=== PATIENT | male | born 1950 | race Caucasian/White ===

== ENCOUNTER 2019-02-08 10:24 | Emergency (ER) | payer OTHER ==
[~2019-02-08] VITALS: Ht 177.8 cm; Wt 94.0 kg
[~2019-02-08 10:24] MED LIST: ALPR0.254 PO; CARB15DR74 OP; CITA20TA6 PO; MELO15TA24 PO; TRAM50TA2 PO; VARD20TA2 PO
--- NOTE | 2019-02-08 10:32 | NUR ---
BIB EMS FROM HOME. C/O SUDDEN ONSET RIGHT SIDE FLANK PAIN, DISURIA AND DECREASED UOP. NO HX OF KIDNEY STONES. PT INTO GOWN, BP AND PULSE OX MONITORING PLACED. CALL LIGHT W/I REACH. FAMILY AT BEDSIDE. AWAITING PROVIDER
[2019-02-08] MEDS ORDERED: KETOROLAC 30 MG/1 ML ONE ×2 (10:42→13:27)
[2019-02-08] MEDS ORDERED: ONDANSETRON 2MG/ML, 2ML ONE (10:42)
[2019-02-08] MEDS ORDERED: HYDROmorphone 2 MG/ML, 1ML ONE (10:43)
--- NOTE | 2019-02-08 10:52 | NUR ---
PT MED NOTED FOR PAIN 06/02. CALL LIGHT W/I REACH, PT INSTRUCTED TO NOT GET OOB W/O CALLING FOR RN
[2019-02-08] MEDS ORDERED: HYDROmorphone 1 MG/ML, 1ML INJ IV ONE (11:00)
[2019-02-08] MEDS ORDERED: ONDANSETRON 2MG/ML, 2ML IVPush ONE (11:00)
[2019-02-08] MEDS ORDERED: KETOROLAC 30 MG/1 ML IVPush ONE ×2 (11:00→13:00)
[2019-02-08] MEDS ORDERED: SODIUM CHLORIDE FLUSH 10ML SYR IVF ONE (11:00)
[2019-02-08 11:01] LABS: BASOPHILS # (AUTO) 0.04 x10^3/uL (0-0.1); BASOPHILS % (AUTO) 0 % (0-1); EOSINOPHILS # (AUTO) 0.06 x10^3/uL (0-0.4); EOSINOPHILS % (AUTO) 1 % (1-7); LYMPHOCYTES # (AUTO) 4.35 x10^3/uL (1-3.4); LYMPHOCYTES % (AUTO) 42 % (22-44); MD NO; MEAN CORPUSCULAR HGB CONC 33.6 g/dL (33.2-36.2); MEAN CORPUSCULAR VOLUME 92.1 fL (81-97); MEAN PLATELET VOLUME 8.3 fL (7.4-10.4); MONOCYTES # (AUTO) 0.21 x10^3/uL (0.2-0.8); MONOCYTES % (AUTO) 2 % (2-9); NEUTROPHILS # (AUTO) 5.69 x10^3/uL (1.8-6.8); NEUTROPHILS % (AUTO) 55 % (42-75); PLATELET COUNT 226 x10^3/uL (130-400); RED BLOOD COUNT 4.67 x10^6/uL (4.38-5.82); RED CELL DISTRIBUTION WIDTH 14.1 % (9.4-14.8)
--- NOTE | 2019-02-08 11:03 | NUR ---
PAIN NOW 2/10, PT VERBALIZES FEELING BETTER. VSS. DR. DAWN AT BEDSIDE.
[2019-02-08 11:15] LABS: ALBUMIN 4.1 g/dL (3.4-5.0); ANION GAP 14 mmol/L (5-15); CALCIUM 9.2 mg/dL (8.5-10.1); CHLORIDE 108 mmol/L (98-107)
[2019-02-08 11:18] LABS: ALANINE AMINOTRANSFERASE 36 U/L (12-78); ALKALINE PHOSPHATASE 71 U/L (45-117); CREATININE 1.48 mg/dL (0.7-1.3); TOTAL PROTEIN 6.6 g/dL (6.4-8.2)
[2019-02-08] MEDS ORDERED: SODIUM CHLORIDE 0.9% 1,000ML IVBOLUS ONE (12:00)
--- NOTE | 2019-02-08 12:03 | NUR ---
TASK RN: PT RESTING IN ROOM. VSS. NO NEEDS EXPRESSED. PT REPORTS DECLINE IN PAIN. IV BOLUS STARTED PER ORDERS. MED REC COMPLETED. CALL LIGHT WITHIN REACH. AWAITING RESULTS.
[2019-02-08 12:04] LABS: MICROSCOPIC NOT IND
[2019-02-08 12:11] LABS: CULTURE INDICATED? NO
--- NOTE | 2019-02-08 13:21 | NUR ---
PT OOB AMBULATED TO BATHROOM UPRIGHT STEADY GAIT. RTD TO ROOM W/O INCIDENT. D/C INST PENDING
[2019-02-08 13:59] VITALS: BP 133/69
--- NOTE | 2019-02-08 14:02 | NUR ---
Patient/Caregiver given discharge instructions and they have confirmed that they understand the instructions. Patient ambulatory with steady gait.
== END 2019-02-08 14:03 | disposition home or self-care (01) ==
LOC: ED 12:03
DX: N13.2 Hydronephrosis with renal and ureteral calculous obstruction (principal); R59.9 Enlarged lymph nodes, unspecified; Z87.442 Personal history of urinary calculi; Z85.46 Personal history of malignant neoplasm of prostate
CPT/HCPCS: 36415; 74176; 80053; 81003; 83605; 83690; 85025; 96374; 96375; 99284; J1170; J1885; J2405; J7030

== ENCOUNTER 2020-07-26 15:20 | Outpatient (CLI) | payer OTHER ==
[2020-07-26] MEDS ORDERED: OMNIPAQUE 350 MG/ML, 100ML BOTTLE ONE (16:30)
== END 2020-07-26 23:59 | disposition home or self-care (01) ==
LOC: RAD 15:20
PROVIDERS: ATTEND Pathology Hematology
DX: C91.10 Chronic lymphocytic leukemia of B-cell type not having achieved remission (principal); K76.0 Fatty (change of) liver, not elsewhere classified; R59.0 Localized enlarged lymph nodes; N20.0 Calculus of kidney; K57.30 Diverticulosis of large intestine without perforation or abscess without bleeding; M51.34 Other intervertebral disc degeneration, thoracic region
CPT/HCPCS: 71260; 74177; Q9967

== ENCOUNTER → 2021-01-23 | Outpatient (CLI) | payer OTHER ==
[~2021-01-23] MED LIST changes: +OMNIPAQUE 350 MG/ML, 100ML BOTTLE ONE
== END | disposition home or self-care (01) ==
LOC: CFH 13:54
PROVIDERS: ATTEND Nurse Practitioner
DX: C91.10 Chronic lymphocytic leukemia of B-cell type not having achieved remission (principal); E04.1 Nontoxic single thyroid nodule; N20.0 Calculus of kidney; K57.30 Diverticulosis of large intestine without perforation or abscess without bleeding; M51.36 Other intervertebral disc degeneration, lumbar region
CPT/HCPCS: 71260; 74177; 82565; Q9967